=== PATIENT | female | born 1985 | race Caucasian/White ===

== ENCOUNTER 2021-09-20 09:32 | Outpatient (CLI) | payer OTHER, SELFPAY | END 2021-09-20 23:59 | disposition short-term general hospital (02) | LOC: LAB 09:37 | PROVIDERS: Visit Provider Obstetrics & Gynecology | DX: O20.0 Threatened abortion (principal) | CPT/HCPCS: 36415; 84702 ==

== ENCOUNTER 2021-09-22 08:51 | Outpatient (CLI) | payer OTHER, SELFPAY ==
[2021-09-22 09:52] LABS: hCG Titer Quant., Serum 49674 mIU/mL (1-3)
== END 2021-09-22 23:59 | disposition short-term general hospital (02) ==
LOC: PAVLAB 08:52
PROVIDERS: Referring Provider Obstetrics & Gynecology; Visit Provider Obstetrics & Gynecology
DX: O20.0 Threatened abortion (principal)
CPT/HCPCS: 36415; 84702

== ENCOUNTER 2021-09-25 14:15 | Outpatient (CLI) | payer OTHER, SELFPAY ==
[2021-09-25 14:59] LABS: T4 Free Direct 1.04 ng/dL (0.76-1.46); Thyroid Stim Hormone (TSH) 1.94 uIU/mL (0.358-3.74)
== END 2021-09-25 23:59 | disposition short-term general hospital (02) ==
LOC: PAVLAB 14:16
PROVIDERS: Referring Provider Obstetrics & Gynecology; Visit Provider Obstetrics & Gynecology
DX: E03.9 Hypothyroidism, unspecified (principal)
CPT/HCPCS: 36415; 84439; 84443; 86850; 86900; 86901

== ENCOUNTER 2021-10-06 16:23 | Outpatient (CLI) | payer OTHER, SELFPAY ==
[2021-10-06 18:08] LABS: hCG Titer Quant., Serum 1039 mIU/mL (1-3)
== END 2021-10-06 23:59 | disposition home or self-care (01) ==
LOC: LAB 16:24
PROVIDERS: Referring Provider Obstetrics & Gynecology; Visit Provider Obstetrics & Gynecology
DX: O20.0 Threatened abortion (principal)
CPT/HCPCS: 36415; 84702

== ENCOUNTER 2021-10-14 09:23 | Outpatient (CLI) | payer OTHER, SELFPAY ==
[2021-10-14 10:53] LABS: hCG Titer Quant., Serum 124 mIU/mL (1-3)
== END 2021-10-14 23:59 | disposition home or self-care (01) ==
LOC: PAVLAB 09:24
PROVIDERS: Referring Provider Obstetrics & Gynecology; Visit Provider Obstetrics & Gynecology
DX: O20.0 Threatened abortion (principal)
CPT/HCPCS: 36415; 84702

== ENCOUNTER → 2022-10-28 | Outpatient (CLI) | payer OTHER, SELFPAY ==
[2022-10-28 14:50] LABS: Thyroid Stim Hormone (TSH) 1.78 uIU/mL (0.358-3.74)
[2022-10-28 15:15] LABS: NATERA MAILED SPECIMEN
[2022-10-28 15:25] LABS: HIV - WCH Non-Reactive (Nonreactive); Hepatitis B Surface Antigen Non-Reactive (Nonreactive); Hepatitis C Antibody Non-Reactive (Nonreactive); Rubella IgG Reactive (Nonreactive); Syphilis Antibodies Non-reactive
[2022-10-28 16:27] LABS: Absolute Lymphocyte Count 1.53 X10^3/uL (0.83-4.51); Absolute Neutrophil Count 9.1 X10^3/uL (2.0-7.7); Basophil# 0.02 X10^3/uL; Basophil% 0.2 % (0-1); Eosinophil# 0.04 X10^3/uL; Eosinophils% 0.4 % (0-5); Hematocrit 37.2 % (37-47); Hemoglobin 12.7 g/dL (12.0-15.0); Lymphocyte # 1.53 X10^3/ul (0.83-4.51); Lymphocyte % 13.7 % (19-41); Mean Corp Hgb Conc 34.1 g/dL (32-36); Mean Corpuscular Hgb 30.6 pg (27.0-32.0); Mean Corpuscular Volume 89.6 fL (81-99); Mean Platelet Vol. 10.7 fl (6.2-12.0); Monocyte# 0.46 X10^3/uL; Monocyte% 4.1 % (0-10); NRBC Flagged by Analyzer 0 % (0-5); Neutrophil # 9.06 X10^3/uL (2.7-7.7); Neutrophil % 81.3 % (47-70); Platelet Count 327 K/mm3 (150-450); RBC Distribution Width CV 12.5 % (11.6-14.6); Red Blood Count 4.15 M/mm3 (4.2-5.4); White Blood Count 11.1 K/mm3 (4.4-11.0)
[2022-11-01 07:07] LABS: Chlamydia By Nucleic Acid AMP Negative (Negative)
[2022-11-01 14:05] LABS: Gonococcus By Nucleic Acid AMP Negative (Negative)
== END | disposition home or self-care (01) ==
PROVIDERS: Referring Provider Obstetrics & Gynecology; Visit Provider Obstetrics & Gynecology
DX: O09.521 Supervision of elderly multigravida, first trimester (principal); Z34.90 Encounter for supervision of normal pregnancy, unspecified, unspecified trimester
CPT/HCPCS: 36415; 84443; 85025; 86703; 86762; 86780; 86803; 86850; 86900; 86901; 87086; 87088; 87340; 87491; 87591

== ENCOUNTER → 2022-12-05 | Outpatient (CLI) | payer OTHER, SELFPAY | END | disposition home or self-care (01) | PROVIDERS: Referring Provider Nurse Practitioner Women's Health; Visit Provider Nurse Practitioner Women's Health | DX: Z36.9 Encounter for antenatal screening, unspecified (principal) | CPT/HCPCS: 36415 ==

== ENCOUNTER → 2022-12-29 | Outpatient (CLI) | payer OTHER, SELFPAY ==
--- NOTE | 2022-12-29 12:33 | US_ITS ---
STUDY: SECOND AND THIRD TRIMESTER OBSTETRICAL ULTRASOUND REASON FOR EXAM: Female, 37 years old . anatomy. LMP: August 08, 2022. TECHNIQUE: Transabdominal and Transvaginal TECHNICAL QUALITY: Adequate. PRIOR ULTRASOUND: None. FINDINGS: There is a single intrauterine fetus. The fetus is in a cephalic presentation. There is demonstrated cardiac activity with a heart rate of 137 bpm. There is a normal amniotic fluid volume. The largest amniotic fluid pocket measures 3.8 cm x 6.4 cm. The amniotic fluid index (CRISTIANO) is within normal limits. The placenta is posterior in location and is not low lying. There are Grade 0 placental changes. The cervix measures 4.5 cm in length. The adnexal regions are not visualized. BIOMETRY: BPD: 4.32 cm: 19 weeks, 0 days HC: 17.05 cm: 19 weeks, 5 days AC: 14.55 cm: 19 weeks, 6 days FL: 3.17 cm: 19 weeks, 6 days CI: 70.8% FL/BPD: 73.3% FL/HC: FL/AC: 21.8% HC/AC: 1.17 age by current US: 19 weeks, 3 days. WESTLEY by current US: May 22, 2023. Estimated weight: 317 grams, +/- 47 grams, 60 %. Age by LMP: 19 weeks, 2 days. WESTLEY by LMP: May 23, 2023. ANATOMY: Gender: Female Cranium: Normal lateral ventricles. Normal choroid plexus. Normal cerebellum. Normal cisterna magna. Normal face, nose and lips. Chest: Normal 4-chamber heart. Abdomen/Pelvis: Normal diaphragm. Normal stomach. Normal abdominal wall. Normal cord insertion. Normal 3 vessel cord. Normal kidneys. Normal bladder. Spine: Normal cervical spine. Normal thoracic spine. Normal lumbar spine. Normal sacrum. Extremities: Normal bilateral upper extremities. Normal bilateral lower extremities. IMPRESSION: Single live uterine gestation with a mean gestational age of 19 weeks and 3 days. Electronically Signed: Burak Delaney MD at 13:23 EDT , STUDY: FIRST TRIMESTER OBSTETRICAL ULTRASOUND REASON FOR EXAM: Female, 37 years old . Cervical length. LMP: August 08, 2022. TECHNIQUE: Transvaginal TECHNICAL QUALITY: Adequate. PRIOR ULTRASOUND: None. FINDINGS: Cervical length measures 4.5 cm. US/OB Anatomy Scan IMPRESSION: Cervical length measures 4.5 cm. Electronically Signed: Burak Delaney MD at 13:24 EDT ,
== END | disposition home or self-care (01) ==
PROVIDERS: Referring Provider Obstetrics & Gynecology; Visit Provider Obstetrics & Gynecology
DX: O09.90 Supervision of high risk pregnancy, unspecified, unspecified trimester (principal); Z3A.00 Weeks of gestation of pregnancy not specified
CPT/HCPCS: 76805; 76817

== ENCOUNTER → 2023-02-24 | Outpatient (CLI) | payer OTHER, SELFPAY ==
[2023-02-24 08:54] LABS: Absolute Lymphocyte Count 1.07 X10^3/uL (0.83-4.51); Absolute Neutrophil Count 6.1 X10^3/uL (2.0-7.7); Basophil# 0.01 X10^3/uL; Basophil% 0.1 % (0-1); Eosinophil# 0.03 X10^3/uL; Eosinophils% 0.4 % (0-5); Hematocrit 34.4 % (37-47); Hemoglobin 11.8 g/dL (12.0-15.0); Lymphocyte # 1.07 X10^3/ul (0.83-4.51); Mean Corp Hgb Conc 34.3 g/dL (32-36); Mean Corpuscular Volume 90.3 fL (81-99); Mean Platelet Vol. 10.4 fl (6.2-12.0); Monocyte# 0.37 X10^3/uL; Monocyte% 4.9 % (0-10); NRBC Flagged by Analyzer 0 % (0-5); Neutrophil # 6.11 X10^3/uL (2.7-7.7); Neutrophil % 80.2 % (47-70); Platelet Count 222 K/mm3 (150-450); RBC Distribution Width CV 12.4 % (11.6-14.6); RBC Distribution Width SD 40.1 fl (35.1-43.9); Red Blood Count 3.81 M/mm3 (4.2-5.4); White Blood Count 7.6 K/mm3 (4.4-11.0)
[2023-02-24 09:36] LABS: Glucose Challenge Gest 1H 50g 125 mg/dL (70-140)
[2023-02-24 10:12] LABS: T4 Free Direct 1.06 ng/dL (0.76-1.46); Thyroid Stim Hormone (TSH) 1.59 uIU/mL (0.358-3.74)
[2023-02-24 10:29] LABS: HIV - WCH Non-Reactive (Nonreactive); Syphilis Antibodies Non-reactive
== END | disposition home or self-care (01) ==
LOC: PAVLAB 08:23
PROVIDERS: Registered Nurse; Referring Provider Obstetrics & Gynecology; Visit Provider Obstetrics & Gynecology
DX: O99.282 Endocrine, nutritional and metabolic diseases complicating pregnancy, second trimester (principal); Z3A.23 23 weeks gestation of pregnancy; E03.9 Hypothyroidism, unspecified
CPT/HCPCS: 36415; 82950; 84439; 84443; 85025; 86703; 86780; 86900; 86901

== ENCOUNTER → 2023-04-14 | Outpatient (CLI) | payer OTHER, SELFPAY ==
--- NOTE | 2023-04-14 14:28 | US_ITS ---
STUDY: SECOND AND THIRD TRIMESTER OBSTETRICAL ULTRASOUND - LIMITED REASON FOR EXAM: Female, 38 years old growth -- 36wks LMP: August 08, 2022. PRIOR ULTRASOUND: Comparison is made with prior study dated December 29, 2022. TECHNIQUE: Transabdominal TECHNICAL QUALITY: Adequate. FINDINGS: There is a single intrauterine fetus. The fetus is in a cephalic presentation. There is demonstrated cardiac activity with a heart rate of 158 bpm. There is a normal amniotic fluid volume. The largest amniotic fluid pocket measures 5.4 cm. The amniotic fluid index (CRISTIANO) is 15.81 cm. The placenta is posterior in location and is not low lying. There are Grade 2 placental changes. The cervix measures 3.2 cm in length. BIOMETRY: BPD: 8.76 cm: 35 weeks, 3 days HC: 31.36 cm: 35 weeks, 1 days AC: 31.68 cm: 35 weeks, 4 days FL: 6.92 cm: 35 weeks, 4 days Age by LMP: 35 weeks, 4 days. WESTLEY by LMP: May 15, 2023. age by prior US: 34 weeks, 4 days. WESTLEY by prior US: May 22, 2023. age by current US: 35 weeks, 0 days. WESTLEY by current US: May 19, 2023. Estimated weight: 2737 grams, +/- 411 grams, 52 percentile. US/OB Limited With Biometrics IMPRESSION: Single live intrauterine gestation with mean gestational age of 34 weeks and 4 days. The measurement obtained today falls within the normal expected range. Electronically Signed: Burak Delaney MD at 10:46 EDT ,
== END | disposition home or self-care (01) ==
LOC: US 14:27
PROVIDERS: Referring Provider Obstetrics & Gynecology; Visit Provider Obstetrics & Gynecology
DX: Z34.90 Encounter for supervision of normal pregnancy, unspecified, unspecified trimester (principal); Z3A.36 36 weeks gestation of pregnancy; Z87.59 Personal history of other complications of pregnancy, childbirth and the puerperium
CPT/HCPCS: 76816

== ENCOUNTER → 2023-04-21 | Outpatient (CLI) | payer OTHER, SELFPAY | END | disposition home or self-care (01) | LOC: LABSPEC 15:10 | PROVIDERS: Referring Provider Obstetrics & Gynecology; Visit Provider Obstetrics & Gynecology | DX: O09.90 Supervision of high risk pregnancy, unspecified, unspecified trimester (principal); Z3A.00 Weeks of gestation of pregnancy not specified | CPT/HCPCS: 87081 ==

== ENCOUNTER 2023-05-09 07:25 | Inpatient (IN) | payer OTHER, SELFPAY ==
[2023-05-09] VITALS (33 sets, daily range): BP systolic 86–122; BP diastolic 52–81; PULSE 73–106; TEMP 36.3–37; O2SAT 97–100; BMI 30.3
[2023-05-09] MEDS: Lactated Ringers 1,000 ML 50 ML IV (08:15)
--- NOTE | 2023-05-09 08:21 | HP.PCM.OB_ITS ---
HPI - General General Date of Admission: 05/09/23 HPI Narrative STEPHAN ADAM, is a 38 y/o @ 39 weeks 1 day who presents to L&D for IOL. She has a history of shoulder dystocia with first child, otherwise normal . Wayne score prior to admission was a 7 Maternal Data Information WESTLEY Calculator Estimated Delivery Date Method Current WG Current Estimate 05/15/23 Ultrasound #1 39w 1d Other Estimates 05/23/23 LMP (Certain) 38w 0d PFSH PFS Medical History (Updated 05/09/23 @ 08:12 by Sandip Restrepo) Headache History of miscarriage Thyroid disorder Home Medications multivitamin no.47-iron fum 27 mg-folate no.1 1 mg-dha 300 mg capsule (PNV-DHA) 1 cap PO DAILY 10/09/22 [History Last Taken 05/09/23 06:00 1 cap] levothyroxine 25 mcg capsule 25 mcg PO DAILY hypothyroidism #30 caps 02/24/23 [Rx Last Taken 05/09/23 06:00 25 mcg] levothyroxine 25 mcg tablet (Synthroid) 25 mcg PO DAILY #30 tabs 02/24/23 [Rx Last Taken Unknown] Allergy/AdvReac Type Severity Reaction Status Date / Time No Known Allergies Allergy Verified 05/09/23 08:06 Family History Mother Thyroid disorder Surgical History [place] teeth extracted Social History adopted: No household members: spouse and children number of children: 2 current occupational status: unemployed current occupation: [employer] pets and animals: Yes pets and animals: dog(s) history of recent travel: No ([place] 05/2021) sexually active: Yes Smoking Status: Never smoker alcohol intake: never substance use type: does not use well-balanced diet: daily or most days caffeine: Yes Type: carbonated beverages and coffee Number of servings: 1 eating out: 1-3 times/week during the past year weight has: remained stable what type of physical activity do you participate in: walking and bicycling frequency: 3-4 times per week duration: 30-45 minutes/day drew/christian: Orthodoxy seatbelt use: always do you feel safe at home: Yes additional social history: Ashutosh [employer] History 4 Elective abortions Hx Para 2 Spontaneous abortions 1 Hx # Term Pregnancies Ectopic pregnancies Hx # Pregnancies Multiple births # of living children 2 Past Pregnancies Del. Date Name GA/Weeks Outcome Route Bth Weight Infant Gen Labor Lgth Anesthesia Del Locatn Provider FOB 07/04/14 [facility] - full term vacuum 8# Female 20 hr epidural [facility] Yobany 09/12/18 [facility] - full term 7#14oz Male 14 hr epidural Milton Yobany Delivery Date: 07/04/14 Last Updated by: Abby Villela MD Mild BP elevation, induced. Retained placenta with infection, mild shoulder dystocia Delivery Date: 09/12/18 Last Updated by: Abby Villela MD normal delivery Visit Details Expected Delivery Route/Plan Labor Preferences- CB/BF classes: [] labor support person: Yobany labor intervention preferences: [] pain management options preferred:epidural cut cord/dad catch: [] : yes PP control planned: nuvaring vs vasectomy. discussed possible routes of delivery and associated risks: [] special requests: [] Plans Covid status: discussed Flu vaccine: discussed Tdap vaccine: obtained Rhogam: obtained LARC form signed: completed movement and labor precautions reviewed. Problem list reviewed and updated with the most current plan of care details and appropriate orders placed. Relevant counseling for the gestational age provided. Continue routine care and follow up unless otherwise noted in visit notes/problem list details OB Flowsheet Initial Weight: Not Recorded Date -?-?-?-?-?-?-?-?-?-?-?-?- EGA Weight BP Urine Prot -?-?-?-?-?-?-?-?-?-?-?-?- Glucose FHR FuHt Pres Dilation -?-?-?-?-?-?-?-?-?-?-?-?- Effaced St Visit Note 10/28/22 -?-?-?-?-?-?-?-?-?-?-?-?- 11w 4d 144 lb 8 oz 116/75 -?-?-?-?-?-?-?-?-?-?-?-?- 185 -?-?-?-?-?-?-?-?-?-?-?-?- JV- single live IUP measuring 11 weeks 4 days. There is 3.3mm NT present. discussed with Dr. Tammy Davis and plan to scan at 15 weeks. NIPT being performed today. 11/25/22 -?-?-?-?-?-?-?-?-?-?-?-?- 15w 4d 149 lb 8 oz 108/64 Nega tive -?-?-?-?-?-?-?-?-?-?-?-?- Negative 157 -?-?-?-?-?-?-?-?-?-?-?-?- MH-No VB. Doing well. See PL for US management. 12/22/22 -?-?-?-?-?-?-?-?-?-?-?-?- 19w 3d 153 lb 4 oz 121/80 Nega tive -?-?-?-?-?-?-?-?-?-?-?-?- Negative 155 -?-?-?-?-?-?-?-?-?-?-?-?- JV- normal NIPT. pt was unable to get in to [facility] due to her insurance. hospital ultrasound ordered for anatomy. if abnormal will send to [facility] 01/18/23 -?-?-?-?-?-?-?-?-?-?-?-?- 23w 2d 158 lb 6 oz 100/69 Nega tive -?-?-?-?-?-?-?-?-?-?-?-?- Negative 150 -?-?-?-?-?-?-?-?-?-?-?-?- SM- no vb lof go od fm no regular ctx 02/24/23 -?-?-?-?-?-?-?-?-?-?-?-?- 28w 4d 163 lb 4 oz 101/72 Nega tive -?-?-?-?-?-?-?-?-?-?-?-?- Negative 137 28 -?-?-?-?-?-?-?-?-?-?-?-?- LC- no concerns. passed 28 week labs. obtained tdap and larc. will obtain tsh/t4 for hypothyroidism. 03/10/23 -?-?-?-?-?-?-?-?-?-?-?-?- 30w 4d 167 lb 6 oz 106/70 Nega tive -?-?-?-?-?-?-?-?-?-?-?-?- Negative 145 30 -?-?-?-?-?-?-?-?-?-?-?-?- LC-no concerned. tsh normal. good fm. no lof/vb/ctx. 04/05/23 -?-?-?-?-?-?-?-?-?-?-?-?- 34w 2d 171 lb 6 oz 106/70 Nega tive -?-?-?-?-?-?-?-?-?-?-?-?- Negative 140 34 -?-?-?-?-?-?-?-?-?-?-?-?- Sm- no vb lof go od fm no regular ctx 04/21/23 -?-?-?-?-?-?-?-?-?-?-?-?- 36w 4d 176 lb 116/80 Negative -?-?-?-?-?-?-?-?-?-?-?-?- Negative 135 36 -?-?-?-?-?-?-?-?-?-?-?-?- MH-No VB, LOF or CTX. GBS. Denies concerns 04/26/23 -?-?-?-?-?-?-?-?-?-?-?-?- 37w 2d 175 lb 8 oz 111/74 Nega tive -?-?-?-?-?-?-?-?-?-?-?-?- Negative 140 37 -?-?-?-?-?-?-?-?-?-?-?-?- SM- no vb lof go od fm no regular ctx 05/05/23 -?-?-?-?-?-?-?-?-?-?-?-?- 38w 4d 176 lb 2 oz 128/86 Nega tive -?-?-?-?-?-?-?-?-?-?-?-?- Negative 156 38 Cephalic 1 -?-?-?-?-?-?-?-?-?-?-?-?- 70 -3 JV- JV- no lof, vaginal bleeding , or dec fm. IOL set up for wednesday. ROS Constitutional Constitutional: Denies change in weight, fatigue, fever(s), headache(s), poor appetite or weakness Eyes Eyes: Denies blurry vision, change in vision, seeing flashes or spots in vision ENT HEENT: Denies dizziness, headache(s), loss taste/smell or sore throat Cardiovascular Cardiovascular: Denies chest pain, dizziness, dyspnea, irregular heart rhythm, leg edema, palpitations, rapid heart rate or vomiting Respiratory/Chest Respiratory/Chest: Denies chest tightness, cough, dyspnea or breast pain Gastrointestinal Gastrointestinal: Denies abdominal pain, anorexia, constipation, cramping, diarrhea, hemorrhoids, vomiting or weight changes Genitourinary Genitourinary: Denies dysuria, flank pain, genital lesions, genital pain, urinary frequency or urinary urgency Musculoskeletal Musculoskeletal: Denies back pain, difficulty walking, joint pain, limited range of motion, muscle cramps or numbness Integumentary Integumentary: Denies lesions or unusual bruising Neurologic Neurologic: Denies abnormal movements, abnormal speech, dizziness, numbness, seizure-like activity or syncope Psychiatric Psychiatric: Denies anxiety, behavioral changes, change in appetite, change in libido, cognitive impairment, confusion, depression, difficulty concentrating, hallucinations or suicidal thoughts Endocrine Endocrinology: Denies excessive sweating, polydipsia or polyuria Hematologic/Lymphatic Hematologic/Lymphatic: Denies easy bleeding, easy bruising or lymphadenopathy Allergic/Immunologic Allergic/Immunologic: Denies itchy eyes, lip swelling, seasonal rhinorrhea, rhinitis, throat swelling, tongue swelling, eczemia, wheezing or asthma Vital Signs Vital Signs Vital Signs: Weight Weight: 176 lb 9.444 oz Body Mass Index (BMI) 30.3 Physical Exam Const alert, oriented x3, no apparent distress and healthy appearing General Appearance: cooperative; Negative for anxious HEENT normocephalic Face and Sinus: normal facial exam Eyes EOMs intact bilaterally and no scleral icterus General Eye: normal appearance of both eyes Neck full ROM and supple Lymph Lymphatic: no lymphadenopathy noted Chest Chest: abnormal inspection of the chest Resp normal respiratory effort Effort and Inspection: able to speak in complete sentences Cardio regular rate GI soft to palpation and non-tender Inspection: gravid Palpation: soft; Negative for tender external exam normal Amniotic Fluid: ROM+plus Back/Spine no CVA tenderness Extremity normal to inspection, full ROM and no clubbing, cyanosis or edema General Extremity: Negative for calf tenderness or edema Skin Lesions: no lesions Rashes: no rashes Psych mental status grossly normal Labs Labs Labs: Blood Type A NEGATIVE Antibody Screen NEGATIVE Hct 34.4 % (37-47) L Hgb 11.8 g/dL (12.0-15.0) L Pap Smear Negative Obstetrics US Syphilis Total Ab Non-reactive Rubella IgG Antibody Reactive (Nonreactive) Hep Bs Antigen Non-Reactive (Nonreactive) Chlamydia DNA (BALA) Negative (Negative) Neisseria gonorrhoeae DNA (BALA) Negative (Negative) HIV 1&2 Antibody Non-Reactive (Nonreactive) Glucose 1 Hr 50 gm 125 mg/dL (70-140) Miscellaneous Test Assessment & Plan (1) History of shoulder dystocia in prior : COMMENT: with 8 lb vacuum delivery, not with 7lb 14 ounce second delivery, discussed growth US at 36 weeks with this , consider 39 week IOL (2) Hypothyroidism: COMMENT: on synthroid 25mcg, Tsh q trimester (3) Supervision of high risk , antepartum: COMMENT: PRR , WESTLEY 05/23/23 surprise [facility] Florian Yobany (4) : QUALIFIERS: Weeks of gestation: 38 weeks Qualified Code(s): Z3A.38 - 38 weeks gestation of COMMENT: GBS neg, NIPT low risk, AFP neg. discussed carrier testing. nl anatomy (5) Anxiety: COMMENT: not medicated (6) Rh negative state in antepartum period: COMMENT: rhogam given 02/24 PLAN: Plan Patient presents IOL, plan management for with cytotec, thapa, pit, and arom Pain management: plans epidural. GBS negative. Management of any complications: none I have reviewed the [facility] and made any clinically relevant updates.
[2023-05-09 08:27] LABS: Absolute Lymphocyte Count 1.36 X10^3/uL (0.83-4.51); Absolute Neutrophil Count 7.1 X10^3/uL (2.0-7.7); Basophil# 0.02 X10^3/uL; Basophil% 0.2 % (0-1); Eosinophil# 0.01 X10^3/uL; Eosinophils% 0.1 % (0-5); Hematocrit 34.6 % (37-47); Hemoglobin 11.7 g/dL (12.0-15.0); Lymphocyte # 1.36 X10^3/ul (0.83-4.51); Lymphocyte % 15.1 % (19-41); Mean Corp Hgb Conc 33.8 g/dL (32-36); Mean Corpuscular Hgb 30.6 pg (27.0-32.0); Mean Corpuscular Volume 90.6 fL (81-99); Mean Platelet Vol. 10.8 fl (6.2-12.0); Monocyte# 0.44 X10^3/uL; Monocyte% 4.9 % (0-10); NRBC Flagged by Analyzer 0 % (0-5); Neutrophil % 79.1 % (47-70); Platelet Count 211 K/mm3 (150-450); RBC Distribution Width CV 12.5 % (11.6-14.6); RBC Distribution Width SD 40.6 fl (35.1-43.9); Red Blood Count 3.82 M/mm3 (4.2-5.4)
[2023-05-09] MEDS: 0.9% Normal Saline Single 100 ML IV.SOLN. INTRA-UTER (08:35)
[2023-05-09] MEDS: miSOPROStol 25 MCG TABLET VAGINAL (09:00)
[2023-05-09 09:43] LABS: Syphilis Antibodies Non-reactive
[2023-05-09] MEDS: LACTATED RINGERS 500 ML 999 ML IV ×2 (12:51→15:55)
[2023-05-09] MEDS: fentaNYL-bupivacaine (epidural) 100 ML BAG EPIDURAL ×2 (13:52→18:22)
--- NOTE | 2023-05-09 14:06 | PCM.PN.BLA ---
Progress Note patient is comfortable with epidural. She consents to membrane ruptured current tracing: FHT: 130's Moderate variability reactive no decelerations category I tracing [place]: q2-3 minutes Contractions cx 4/70/-2 prior to arom. membranes ruptured artificially and clear fluid returned. cx after arom is 4/70/0. IFM placed without difficulty reviewed tracing abnormalities since last note:no change A/P: 38y/o @ 39 weeks 1 days for IOL monitor contractions for at least 30 minutes and if contractions space out then start pitocin.
[2023-05-09] MEDS: Lactated Ringers 1,000 ML 200 ML IV (15:05)
[2023-05-09] MEDS: Oxytocin 15 Units/NS 250ml 15 UNITS/250 ML IV.SOLN 2 UNITS IV (15:45)
[2023-05-09] MEDS: Ondansetron 4 MG/2 ML Vial IV (19:56)
[2023-05-09] MEDS: Amnioinfusion- 0.9% NS 1,000 ML IV.SOLN. INTRA-UTER (20:28)
--- NOTE | 2023-05-09 21:38 | EX.PCM.OBRPT ---
Assessment & Plan (1) History of shoulder dystocia in prior : COMMENT: with 8 lb vacuum delivery, not with 7lb 14 ounce second delivery, discussed growth US at 36 weeks with this , consider 39 week IOL (2) Hypothyroidism: COMMENT: on synthroid 25mcg, Tsh q trimester (3) Supervision of high risk , antepartum: COMMENT: PRR , WESTLEY 05/23/23 surprise [facility] Flor[facility] Yobany (4) : QUALIFIERS: Weeks of gestation: 38 weeks Qualified Code(s): Z3A.38 - 38 weeks gestation of COMMENT: GBS neg, NIPT low risk, AFP neg. discussed carrier testing. nl anatomy (5) Anxiety: COMMENT: not medicated (6) Rh negative state in antepartum period: COMMENT: rhogam given 02/24 Maternal Data Information WETSLEY Calculator Estimated Delivery Date Method Current WG Current Estimate 05/15/23 Ultrasound #1 39w 1d Other Estimates 05/23/23 LMP (Certain) 38w 0d Final WESTLEY: 05/15/23 Final WESTLEY Source: US <20 weeks Vaginal Delivery Maternal Presentation Maternal Presentation: Elective Induction Type of Induction: Pitocin, Gaston Bulb, Amniotomy and Cytotec Operative Information Date of Procedure: 05/09/23 Pre-Operative Diagnosis: 38 y/o @ 39 weeks 1 days, history of shoulder dystocia, multiparous, elective induction of labor Post-Operative Diagnosis: 38 y/o @ 39 weeks 1 days, history of shoulder dystocia, multiparous, elective induction of labor Type of Anesthesia: Epidural Drain: Gaston to straight drain Estimated Blood Loss: 200cc Findings Description of Procedure: Patient began pushing and delivered the head in the MAHAMED presentation. The head was delivered atraumatically and a loose nuchal cord ?1 was identified and easily reduced over the infant's head. The anterior and posterior shoulders delivered without complication followed by the rest of the and the infant was placed on the maternal abdomen. Delayed cord clamping was employed for approximately 60 seconds. Cord was clamped and cut and gentle traction was applied to the cord and the placenta delivered spontaneously immediately following it was noted to be intact with three-vessel cord. The perineum and vagina were inspected and noted to have a 1st degree perineal laceration. The laceration was repaired using a 3-0 vicryl. EBL was 200cc. Patient and tolerated delivery well. Baby Girl [place] Presentation: Vertex Amniotic Membrane Rupture Type: Artificial Amniotic Fluid Description: Clear Placental Delivery Description: Spontaneous Placenta Disposition: [facility] Cord Vessel Description: 3 Vessels Cord Entanglement: Around neck x 1, loose A Gender: Female (1 minute): 9 (5 minute): 9 Delayed Cord Clamping: Yes Post Vaginal Delivery Medications Given After Delivery: IV Pitocin Episiotomy Description: None Laceration: 1st degree Multi Select Codes Urinary/Genital Urinary/Genital CPT Codes: 42884 Vaginal Delivery [facility]
--- NOTE | 2023-05-09 21:43 | DCINST_ITS ---
Discharge Instructions Diet Discharge Diet: No restrictions Activity Discharge Activity: Return to Normal Activity, May Not Drive (while taking narcotic pain medications.) and May Shower May resume sexual activity in: 4-6 weeks Dressing / Incision Call your doctor if your incision/area has: Continuous Slow Oozing, Sudden Increased Bleeding, Increased Pain/ Swelling, Increased Redness and Foul Smelling Discharge Follow Up Care Please Follow Up With: Kelly Espinoza, DO When: Call [phone] to make an appointment with your doctor in 6 weeks. If you had elevated blood pressure or 4th degree laceration, you will need to be seen in 2 weeks. Test Results: Test results from this visit will be discussed in further detail at your follow- up appointment, if applicable. Discharge Plan Admission Admit Date/Time: 05/09/23 07:25 Attending Provider: Kelly Espinoza Primary Care Provider: Care Physician,No Primary Discharge Orders/Prescriptions Prescriptions: No Action PNV-DHA 27 mg iron-1 mg -300 mg capsule 1 cap PO DAILY levothyroxine 25 mcg capsule 25 mcg PO DAILY Qty: 30 4RF levothyroxine [Synthroid] 25 mcg tablet 25 mcg PO DAILY Qty: 30 0RF Referrals / Follow Up: Care Physician,No Primary [Primary Care Provider] -
[2023-05-09] MEDS: Oxytocin 15 Units/NS 250ml 15 UNITS/250 ML IV.SOLN 83 UNITS IV (22:04)
[2023-05-10 04:28] VITALS: BP 104/54; PULSE 71; RESP 16; TEMP 36.5; O2SAT 97
[2023-05-10] MEDS: Naproxen 500 MG Tablet PO ×2 (05:46→13:48)
[2023-05-10] MEDS: Levothyroxine 25 MCG TABLET PO (05:59)
[2023-05-10 08:00] VITALS: BP 111/76; PULSE 74; RESP 16; TEMP 36.2
--- NOTE | 2023-05-10 08:29 | PCM.PN.OB ---
Subjective Subjective Patient doing well without complaints. Tolerating PO. Ambulating and voiding without difficulty. Feeding well. Denies chest pain, shortness of breath, calf pain/swelling, fevers, chills, lightheadedness. Objective Data Objective Data Vital Signs: Vital Signs Temp Pulse Resp BP Pulse Ox O2 Del Method 97.2 F L 74 16 111/76 97 Room Air 05/10/23 08:00 05/10/23 08:00 05/10/23 08:00 05/10/23 08:00 05/10/23 04:28 05/10/23 04:28 Oxygen Delivery Method Room Air Weight: 176 lb 9.444 oz Body Mass Index (BMI) 30.3 Intake & Output: Intake and Output for Last 24 Hours 05/08/23 05/09/23 05/10/23 23:59 23:59 23:59 Intake Total 2984.64 / 2984.64 250 / 250 Output Total 2150 / 2150 1100 / 1100 Balance 834.64 / 834.64 -850 / -850 Lab / Micro Data 05/09/23 08:15 Labs: Laboratory Results - last 24 hr 05/09/23 08:15: Syphilis Total Ab Non-reactive, Blood Type A NEGATIVE, Antibody Screen NEGATIVE 05/09/23 23:35: Screen NEGATIVE, Baby's Blood Type B POSITIVE, Baby's STEPHY NEGATIVE Physical Exam Const alert and no apparent distress Chest Nipple/Areola: nipples/areola normal Resp normal respiratory effort and normal air movement Effort and Inspection: able to speak in complete sentences Cardio regular rate and regular rhythm GI normal to inspection, nondistended, normoactive bowel sounds GI Narrative: fundus firm 1 below u, normal lochia, no clots. Extremity normal to inspection, full ROM, no calf tenderness and no pedal edema Skin no rashes or lesions noted Psych mental status grossly normal Assessment & Plan (1) Status post vaginal delivery: COMMENT: baby ailyn [place] 05/09/23- JV (2) Anxiety: COMMENT: not medicated hx of on lexapro and wellbutrin(for lexapro side effects) PLAN: Plan s/p PPD # 1 1. routine post delivery care 2. breast feeding- support given 3. rh positive 4. rubella immune 5. anticipate d/c tomorrow
[2023-05-10] MEDS: Prenatal Vits Tablet 1 TABLET PO (09:52)
[2023-05-10] MEDS: Acetaminophen 500 MG Tablet 1000 MG PO (12:11)
[2023-05-10 12:27] VITALS: BP 99/64; PULSE 76; RESP 16; TEMP 36.2
[2023-05-10 15:49] VITALS: BP 103/61; PULSE 78; RESP 16; TEMP 36.2
[2023-05-10 20:00] VITALS: BP 114/78; PULSE 80; RESP 16; TEMP 36.7; O2SAT 98
[2023-05-10 22:05] VITALS: BP 114/78; PULSE 80; RESP 16; TEMP 36.7; O2SAT 98
== END 2023-05-10 21:55 | disposition home or self-care (01) | DRG 807 ==
PROVIDERS: Admitting Provider Obstetrics & Gynecology; Referring Provider Obstetrics & Gynecology; Visit Provider Obstetrics & Gynecology
DX: O99.284 Endocrine, nutritional and metabolic diseases complicating childbirth (principal); Z37.0 Single live birth; E03.9 Hypothyroidism, unspecified; O69.81X0 Labor and delivery complicated by cord around neck, without compression, not applicable or unspecified; Z3A.39 39 weeks gestation of pregnancy; O70.0 First degree perineal laceration during delivery; Z79.890 Hormone replacement therapy; Z79.899 Other long term (current) drug therapy
CPT/HCPCS: 59025; 59050; 85025; 85461; 86780; 86850; 86900; 86901; 99221; J7030; J7120; G0378; J2405; J2790

== ENCOUNTER → 2023-06-23 | Outpatient (CLI) | payer OTHER, SELFPAY ==
[2023-06-29 09:08] LABS: HPV APTIMA, High Risk Negative (Negative)
== END | disposition home or self-care (01) ==
LOC: LABSPEC 15:05
PROVIDERS: Referring Provider Obstetrics & Gynecology; Visit Provider Obstetrics & Gynecology
DX: Z12.4 Encounter for screening for malignant neoplasm of cervix (principal)
CPT/HCPCS: 87624; 88175; G0145